=== PATIENT | female | born 1955 | race Two or more races ===

== ENCOUNTER 2022-01-03 06:22 | Day surgery (SDC) | payer OTHER ==
[~2022-01-03 06:22] MED LIST: RALOXIFENE HCL60 MG PO
== END 2022-01-03 15:35 | disposition home or self-care (01) ==
LOC: CIR.AMB 06:22
PROVIDERS: ATTEND Surgery
DX: C50.412 Malignant neoplasm of upper-outer quadrant of left female breast (principal); R59.0 Localized enlarged lymph nodes; Z42.1 Encounter for breast reconstruction following mastectomy; M81.0 Age-related osteoporosis without current pathological fracture; R42 Dizziness and giddiness; Z20.822 Contact with and (suspected) exposure to COVID-19

== ENCOUNTER 2022-02-25 18:51 | Emergency (ER) | payer OTHER ==
[~2022-02-25] VITALS: Ht 154.9 cm; Wt 50.8 kg
[2022-02-25] MEDS ORDERED: ANASTROZOLE1 MG PO (19:16)
== END 2022-02-25 21:26 | disposition home or self-care (01) ==
LOC: ER 18:51
DX: M79.621 Pain in right upper arm (principal)

== ENCOUNTER 2022-02-26 09:58 | Emergency (ER) | payer OTHER ==
[~2022-02-26] VITALS: Ht 154.9 cm; Wt 50.8 kg
[~2022-02-26 09:58] MED LIST changes: +ANASTROZOLE1 MG PO
== END 2022-02-26 14:48 | disposition home or self-care (01) ==
LOC: ER 09:58
DX: M79.601 Pain in right arm (principal)

== ENCOUNTER 2023-03-18 11:02 | Outpatient (CLI) | payer OTHER | END 2023-03-18 11:07 | disposition home or self-care (01) | LOC: RAD 11:02 | PROVIDERS: ATTEND Internal Medicine | DX: R06.2 Wheezing (principal) ==

== ENCOUNTER → 2023-03-18 11:56 | Outpatient (CLI) | payer OTHER | END | disposition home or self-care (01) | LOC: EKG 11:56 → LAB 11:56 | PROVIDERS: ATTEND Internal Medicine | DX: R00.2 Palpitations (principal) ==